=== PATIENT | female | born 1985 | race African-American/Black ===

== ENCOUNTER 2018-07-09 17:58 | Emergency (ER) | payer MEDICARE, MEDICAID ==
[~2018-07-09] VITALS: Ht 180.3 cm; Wt 110.0 kg
[2018-07-09] MEDS ORDERED: METF500T17 PO (18:20)
[2018-07-09 18:25] LABS: CULTURE INDICATED? YES; MICROSCOPIC INDICATED
[2018-07-09] MEDS ORDERED: MORPHINE SULFATE 4 MG/ML, 1ML ONE ×2 (18:39→20:44)
[2018-07-09] MEDS: MORPHINE SULFATE 4 MG/ML, 1ML IVPush PRN ×2 (18:47→20:45)
[2018-07-09 18:54] LABS: O2 FLOW ROOM AIR L/min; PH, VENOUS 7.365 pH (7.320-7.420)
--- NOTE | 2018-07-09 18:58 | NUR ---
REPORT FROM LESLYE WALTER.
[2018-07-09] MEDS ORDERED: PLEASE ENTER ALLERGIES MC SCH (19:00)
[2018-07-09] MEDS ORDERED: CEFTRIAXONE PMX 1GM/50ML 50 ML IV ONE (19:00)
[2018-07-09 19:06] LABS: ALBUMIN 3.6 g/dL (3.4-5.0); ANION GAP 11 mmol/L (5-15); CALCIUM 9.2 mg/dL (8.5-10.1); CHLORIDE 101 mmol/L (98-107)
[2018-07-09 19:13] LABS: ALANINE AMINOTRANSFERASE 18 U/L (12-78); ALKALINE PHOSPHATASE 62 U/L (45-117); BILIRUBIN,TOTAL 0.4 mg/dL (0.2-1.0); CREATININE 1.05 mg/dL (0.55-1.02)
[2018-07-09 19:17] LABS: ACETONE, SERUM Negative (Negative)
--- NOTE | 2018-07-09 19:17 | NUR ---
PT RESTING IN BED, VSS. FRIEND AT BEDSIDE WATCHING TV. PT CALM AND COOPERATIVE, DENIES NEEDS AT THIS TIME. PT WONDERING ABOUT TEST, PT INFORMED MD WILL BE IN TO SPEAK WITH HER ABOUT RESULTS. CALL LIGHT IN REACH.
[2018-07-09 19:23] LABS: BASOPHILS # (AUTO) 0.06 x10^3/uL (0-0.1); BASOPHILS % (AUTO) 1 % (0-1); EOSINOPHILS # (AUTO) 0.08 x10^3/uL (0-0.4); EOSINOPHILS % (AUTO) 1 % (1-7); LYMPHOCYTES # (AUTO) 2.32 x10^3/uL (1-3.4); LYMPHOCYTES % (AUTO) 31 % (22-44); MD NO; MEAN CORPUSCULAR HEMOGLOBIN 20.7 pg (27.0-34.8); MEAN CORPUSCULAR HGB CONC 31.1 g/dL (32.4-35.8); MEAN CORPUSCULAR VOLUME 66.8 fL (80-100); MEAN PLATELET VOLUME 8.3 fL (7.4-10.4); MONOCYTES # (AUTO) 0.68 x10^3/uL (0.2-0.8); MONOCYTES % (AUTO) 9 % (2-9); NEUTROPHILS # (AUTO) 4.35 x10^3/uL (1.8-6.8); NEUTROPHILS % (AUTO) 58 % (42-75); PLATELET COUNT 456 x10^3/uL (130-400); RED BLOOD COUNT 5.74 x10^6/uL (3.82-5.3); RED CELL DISTRIBUTION WIDTH 18.1 % (9.6-15.2)
--- NOTE | 2018-07-09 20:20 | NUR ---
PROVIDER TO BEDSIDE FOR PT UPDATE COMPLETE.
[2018-07-09] MEDS ORDERED: SODIUM CHLORIDE 0.9% 1,000ML IVBOLUS ONE (20:30)
[2018-07-09] MEDS ORDERED: CEFTRIAXONE PMX 1GM/50ML 50 ML ONE (20:37)
--- NOTE | 2018-07-09 20:49 | NUR ---
PT RECIEVED MEDS PER ORDERS, SEE EMAR. ROCEPHIN AND NS INFUSING WITHOUT DIFFICULTY. PT REPORTED INCREASED PAIN, MORPHINE GIVEN PER ORDERS, SEE EMAR. PT RESTING IN BED WATCHING TV WITH FRIEND AT BEDSIDE. VSS. WILL MONITOR. CALL LIGHT IN REACH.
--- NOTE | 2018-07-09 21:23 | NUR ---
ABX COMPLETE. NS CONTINUES WITHOUT DIFFICULTY. PER MD PT TO FINISH FLUIDS BEFORE D/C. PT RESTING COMFORTABLY, CALM AND COOPERATIVE. NO S/SX OF DISCOMFORT. VSS. WILL MONITOR. CALL LIGHT IN REACH.
--- NOTE | 2018-07-09 21:59 | NUR ---
NS CONTINUES WITHOUT DIFFICULTY.
--- NOTE | 2018-07-09 22:08 | NUR ---
PT VERBALIZED UNDERSTANDING OF D/C INSTRUCTIONS, SCRIPT WITH TOOLS FOR TESTING BS, PT STATES SHE HAS DONE THIS BEFORE AND KNOWS HOW. PT VERBALIZED UNDERSTANDING OF HOW TO TAKE MEDS ON SCRIPT. PT RESTING, APPEARS COMFORTABLE, PT CALM AND RELAXED. NS CONTINUES, APPROX 500MLS REMAINING. WILL MONITOR. CALL LIGHT IN REACH. VSS.
--- NOTE | 2018-07-09 22:40 | NUR ---
NS CONTINUES TO INFUSE, APPROX 300MLS REMAINING. WILL MONITOR.
[2018-07-09 23:20] VITALS: BP 107/62
== END 2018-07-09 23:20 | disposition home or self-care (01) ==
LOC: ED 18:34
DX: N10 Acute pyelonephritis (principal); E10.65 Type 1 diabetes mellitus with hyperglycemia
CPT/HCPCS: 36415; 80053; 81001; 81025; 82010; 82803; 83605; 83690; 84702; 85025; 87040; 87077; 87086; 96365; 96375; 96376; 99283; J0696; J7030; 87147; 87186

== ENCOUNTER 2018-07-11 06:24 | Emergency (ER) | payer MEDICARE, MEDICAID ==
[~2018-07-11] VITALS: Ht 172.7 cm; Wt 110.7 kg
[~2018-07-11 06:24] MED LIST: METF500T17 PO
--- NOTE | 2018-07-11 06:43 | NUR ---
Recieved report from JOSE ANGEL Martínez. All questions answered. Assuming care of pt. Pt changing into hospital gown at this time.
[2018-07-11] MEDS ORDERED: ONDANSETRON 2MG/ML, 2ML IVPush ONE (07:00)
[2018-07-11] MEDS ORDERED: KETOROLAC 30 MG/1 ML IVPush ONE (07:00)
[2018-07-11] MEDS ORDERED: SODIUM CHLORIDE FLUSH 10ML SYR IVF ONE (07:00)
[2018-07-11] MEDS ORDERED: MORPHINE SULFATE 4 MG/ML, 1ML IVPush PRN (07:00)
[2018-07-11 07:03] LABS: BASOPHILS # (AUTO) 0.03 x10^3/uL (0-0.1); BASOPHILS % (AUTO) 0 % (0-1); EOSINOPHILS # (AUTO) 0.12 x10^3/uL (0-0.4); EOSINOPHILS % (AUTO) 2 % (1-7); LYMPHOCYTES # (AUTO) 1.33 x10^3/uL (1-3.4); LYMPHOCYTES % (AUTO) 18 % (22-44); MD NO; MEAN CORPUSCULAR HEMOGLOBIN 20.3 pg (27.0-34.8); MEAN CORPUSCULAR HGB CONC 30.8 g/dL (32.4-35.8); MEAN CORPUSCULAR VOLUME 65.9 fL (80-100); MONOCYTES % (AUTO) 8 % (2-9); NEUTROPHILS % (AUTO) 72 % (42-75); PLATELET COUNT 442 x10^3/uL (130-400); RED BLOOD COUNT 5.33 x10^6/uL (3.82-5.3); RED CELL DISTRIBUTION WIDTH 17.7 % (9.6-15.2)
--- NOTE | 2018-07-11 07:06 | NUR ---
Pt states, "I passed out, had a seizure, bitting my tongue this morning. I have seziures and I don't take meds for it. I have vaginal discharge. Does the doctor have to do a pelvic exam, last time they did that it hurt really bad. I don't want to do it." ED MD aware pt is refusing pelvic exam.
[2018-07-11 07:15] LABS: ALANINE AMINOTRANSFERASE 19 U/L (12-78); ALBUMIN 3.6 g/dL (3.4-5.0); ANION GAP 9 mmol/L (5-15); CALCIUM 9.1 mg/dL (8.5-10.1); CHLORIDE 102 mmol/L (98-107); CREATININE 0.95 mg/dL (0.55-1.02); T4 (THYROXINE) 9.9 mcg/dL (4.8-13.9)
[2018-07-11 07:25] LABS: ALKALINE PHOSPHATASE 63 U/L (45-117); BILIRUBIN,TOTAL 0.5 mg/dL (0.2-1.0); TOTAL PROTEIN 7.8 g/dL (6.4-8.2)
[2018-07-11] MEDS ORDERED: SODIUM CHLORIDE 0.9% 1,000ML IVBOLUS ONE (07:30)
[2018-07-11] MEDS ORDERED: ONDANSETRON 2MG/ML, 2ML ONE (08:06)
[2018-07-11] MEDS ORDERED: KETOROLAC 30 MG/1 ML ONE (08:06)
[2018-07-11] MEDS ORDERED: CEFTRIAXONE PMX 1GM/50ML 50 ML ONE (08:07)
[2018-07-11] MEDS ORDERED: MORPHINE SULFATE 4 MG/ML, 1ML ONE (08:07)
[2018-07-11] MEDS ORDERED: CEFTRIAXONE PMX 1GM/50ML 50 ML IV ONE (09:00)
--- NOTE | 2018-07-11 10:54 | NUR ---
Patient given discharge instructions and they have confirmed that they understand the instructions. Patient ambulatory with steady gait. Pt left with all personal belongings, discharge paperwork, prescription, and taxi voucher.
[2018-07-11 10:59] VITALS: BP 110/62
== END 2018-07-11 11:01 | disposition home or self-care (01) ==
LOC: ED 07:24
DX: N30.00 Acute cystitis without hematuria (principal); I95.1 Orthostatic hypotension; E11.65 Type 2 diabetes mellitus with hyperglycemia; Z72.9 Problem related to lifestyle, unspecified
CPT/HCPCS: 36415; 80053; 83605; 84145; 84436; 84443; 85025; 93005; 96365; 96375; 99284; J0696; J1885; J2405; J7030